=== PATIENT | female | born 1950 | race Caucasian/White ===

== ENCOUNTER → 2017-11-29 | Outpatient (CLI) | payer MEDICARE | LOC: M.RAD 12:15 | DX: Z12.31 Encounter for screening mammogram for malignant neoplasm of breast (principal) ==

== ENCOUNTER → 2018-12-27 | Outpatient (CLI) | payer MEDICARE | LOC: M.RAD 13:00 | DX: Z12.31 Encounter for screening mammogram for malignant neoplasm of breast (principal) ==

== ENCOUNTER → 2018-12-30 | Outpatient (CLI) | payer MEDICARE ==
--- NOTE | 2019-01-10 17:06 | PATH ---
[address] [address] PATHOLOGY RPT PROCEDURE Name: ADAM YADAV Room: [facility] A[facility] M Mckeon#: [id number] Admission: 12/30/18 Date of : 48 Discharge: Report #: [id number] Path Case #: [id number] [facility] Accession Number: [id number] . 01 Material submitted: . breast - RIGHT BREAST BIOPSY, 5:00, 4CFN. Modifiers: right, 5:00 . 01 Clinical history: . 1.85 x 1.89 x 1.26 cm . 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 See comment. (JULIANE:tiara; 01/02/2019) QTP/01/02/2019 . 02 Comment: Specimen type: Image guided core biopsies Tumor site: Right breast 5:00, 4 cm from nipple Tumor quantitation: Approximately 95% of submitted tissues Histologic type: Ductal adenocarcinoma with micropapillary features Histologic grade:I of III Tubules, nuclei and mitoses: 1, 2, 1 LVSI: Not identified Microcalcifications: Not identified Markers: Breast tumor profile pending Block: A1 . No ductal carcinoma in situ is seen. Breast tumor profile studies are pending on A1 and will be the subject of an addendum report. Reviewed with Dr. Joseph Miranda who agrees with the diagnosis. Yun (acting [facility] Breast Navigator) notified at approximately 1415 on 01/02/2019. (JULIANE:pit; 01/02/2019) . 02 Addendum: . Special studies report received from [facility], [address] [place] [address], [address], [place], [address], on case [id number], labeled with their number [id number], dated 01/06/2019. . Breast/Prognostic Marker Analysis . Specimen Site: Rt Breast,4 CMFN, Breast cancer. Specimen ID #: [id number] . ER (Estrogen Receptor) Present/Positive Percent: 80.00% [place] [address] PATHOLOGY RPT PROCEDURE Name: YADAVADAM JACK Room: [facility]#: [id number] Admission: 12/30/18 Date of : 48 Discharge: Report #: [id number] Path Case #: [id number] Analysis: Manual Comments: Staining Intensity: Strong . TN (Progesterone Receptor) Present/Positive Percent: 70.00% Analysis: Manual Comments: Staining Intensity: Strong . HER2 Equivocal Score: 2+ Analysis: Manual . Ki-67 Low Proliferation Percent: 10.00% Analysis: Manual . Time to Fixation (Cold Ischemic Time): Unknown Duration of Fixation: Greater 7 hours and less than 72 hours Type of Fixative: 10% Neutral Buffered Formalin . . at [facility]. Mekhi Arias MD Surgical Pathologist . . Methodology The HER2 Receptor protein expression is analyzed using the Belterra HER2 rabbit monoclonal antibody (clone 4B5). This assay is used for diagnostic determination of the HER2 protein over-expression in paraffin embedded, formalin fixed breast cancer tissue on the Belterra Benchmark. The specimen is processed using a polymer detection system. The membrane staining of the tumor is determined either by manual score or image analysis. This antibody is intended for in vitro diagnostic use. The score is reported as per package insert; 0, 1+, 2+, and 3+. This test is used for clinical purposes. . A rabbit monoclonal antibody (clone SP1) that recognized the Estrogen Receptor is used to perform immunohistochemistry on routinely fixed (formalin) paraffin embedded tissue on the Belterra Benchmark. The specimen is processed using a polymer detection system. The percentage of stained tumor nuclei is determined either manually or by image analysis. This test is intended for in vitro diagnostic use. This test is used for clinical [place] [address] PATHOLOGY RPT PROCEDURE Name: ADAM YADAV [facility] [id number] Admission: 12/30/18 Date of : 48 Discharge: Report #: [id number] Path Case #: [id number] A rabbit monoclonal antibody (clone 1E2) that recognized the Progesterone Receptor is used to perform immunohistochemistry on routinely fixed (formalin) paraffin embedded tissue on the Belterra Benchmark. The specimen is processed using a polymer detection system. The percentage of stained tumor nuclei is determined either manually or by image analysis. This test is intended for in vitro diagnostic use. This test is used for clinical purposes. . A rabbit monoclonal antibody (clone 30-9) that recognized Ki67 is used to perform immunohistochemistry on routinely fixed (formalin) paraffin embedded tissue on the Belterra Benchmark. The specimen is processed using a polymer detection system. The percentage of stained tumor nuclei is determined either manually or by image analysis. This test is intended for in vitro diagnostic use. This test is used for clinical purposes. . Intended Use: This antibody is intended for in vitro diagnostic (IVD) use. HER2 (4B5) is a rabbit monoclonal antibody intended for the semi-quantitative detection of HER2 antigen in sections of formalin-fixed, paraffin embedded normal and neoplastic tissue. . This antibody is intended for in vitro diagnostic (IVD) use. Estrogen Receptor (ER) (SP1) is a rabbit monoclonal antibody (IgG) that is intended for the qualitative detection of estrogen receptor (ER) antigen in sections of formalin-fixed, paraffin-embedded tissue. ER is a rabbit monoclonal antibody that recognizes human estrogen receptor alpha. . This antibody is intended for in vitro diagnostic (IVD) use. Progesterone Receptor (TN) (1E2) is a rabbit monoclonal antibody (IgG) that is intended for the qualitative detection of progesterone receptor (TN) antigen in sections of formalin fixed, paraffin embedded tissue. TN is a rabbit monoclonal antibody that recognizes the A and B forms of the human progesterone receptor. . This antibody is intended for in vitro diagnostic (IVD) use. Ki-67 (30-9) is a rabbit monoclonal antibody (IgG) directed against C-terminal portion of Ki-67 antigen. Staining for Ki-67 can be used to aid in assessing the proliferative activity of normal and neoplastic tissue. Ki-67 is a nuclear protein expressed in proliferating cells. During the cell cycle, the Ki-67 antigen is present in the G1, S, G2 and M phase but is absent in the G0 (quiescent phase). . . Disclaimer: This Test was performed by [facility] [place]. at [address], [address]. . [facility] is a business unit of [facility] [place]. a wholly-owned subsidiary of [place] [address] PATHOLOGY RPT PROCEDURE Name: ADAM YADAV Room: [facility].#: [id number] Admission: 12/30/18 Date of : 48 Discharge: Report #: [id number] Path Case #: [id number] Annamarie [facility]. . This assay has not been validated on decalcified tissues. Results should be interpreted with caution if this specimen was decalcified given the likelihood of false negativity on decalcified specimens. . Any image(s) that accompany this report is/are a fundraising sale representative image(s) only and should not be used to render a diagnosis. . This interpretation is contingent on the specimen and the clinical information received. . For any special tests/stains performed, known positive cells or tissues are tested with each marker and examined to ensure positivity. Positive and negative internal controls, if present, react appropriately. . This analysis is an adjunct to the evaluation of the referring physician and does not represent a final diagnosis. . The immunohistochemistry tests performed at [facility] [place] were validated on tissue fixed in 10% neutral buffered formalin. The performance characteristics of the tests performed on tissue processed in other fixatives is not known. . HER2 testing at [facility] is performed in compliance with the 2018 updated ASCO/CAP Clinical Practice Guideline Focused Update. If the result is EQUIVOCAL (2+), it must be confirmed by an alternative assay such as FISH or Dual JED. . REF: Shani SALINAS, TICO Butler et al: Human Epidermal Growth Factor Receptor 2 Testing in Breast Cancer: ASCO/CAP Clinical Practice Guideline Focused Update. J Clin Oncol 36:0666-3614, 2018. . HER2 and ER/TN ASCO/CAP guidelines require fixation in neutral buffered formalin for a minimum of 6 and a maximum of 72 hours. Fixation times less than 6 hours may not adequately preserve cell proteins. Fixation times longer than 72 hours may cause excess cross-linking of proteins reducing the antigen available for staining. Either scenario can cause reduced staining; hence false negative results are possible and should be considered for these situations if the HER2 IHC score is less than 3+ or ER or TN is negative (no staining or <1% positive). It is recommended that specimens fixed longer than 72 hours with HER2 IHC scores less than 3+ be confirmed by HER2 FISH or Dual JED. The time from biopsy/excision to fixation in formalin (cold ischemic time) must be less than 1 hour. Time to fixation (cold ischemic time) greater than 1 hour should be interpreted with caution. HER2 testing, mainly HER2 by FISH, is particularly vulnerable since excessive cold ischemic time results in preferential loss of HER2 probe signals that may lead to false [place] [address] PATHOLOGY RPT PROCEDURE Name: ADAM YADAV [id number] Admission: 12/30/18 Date of : 48 Discharge: Report #: [id number] Path Case #: [id number] SCORE STAINING PATTERN IN TUMOR CELLS INTERPRETATION RESULTS 0 No staining observed or incomplete, faint membrane staining in less than or equal to 10% of tumor cells. Negative 1+ Incomplete, faint membrane staining in greater than 10% of tumor cells. Negative 2+ Weak to moderate complete membrane staining observed in greater than 10% of tumor cells. Equivocal* *Must be confirmed by alternative assay (IHC/FISH/Dual JED) 3+ Intense, complete membrane staining in greater than 10% of tumor cells. Positive . A complete copy of the report is on file. . Professional and Technical services performed by [facility]. at [address] [place] [address], [address], [place] [address]. . (AMJ 01/06/2019) AZJ/01/06/2019 Addendum Electronically Signed by Jose A Baeza MD, Pathologist Addendum #2: Special studies report received from [facility], [address] [place] [address], [address], [place], [address], on case [id number], labeled with their number [id number], dated 01/10/2019. . Fluorescence in situ Hybridization (FISH) Report HER2/ALEXANDRA-17 Dual-Probe (Breast Cancer) . Result: Negative/Not Amplified HER2/ALEXANDRA-17 Ratio: 1.2 Avg number of HER2 Signals/Nucleus: 1.8 . Indication for Study: Breast Cancer . Specimen Site/Type: Right Breast Tissue - 5:00 . Fixative: 10% Neutral Buffered Formalin . Time to Fixation: Not Provided . Duration of Fixation: 7-72 hours . HER[place] [address] PATHOLOGY RPT PROCEDURE Name: ADAM YADAV Room: [facility]#: [id number] Admission: 12/30/18 Date of : 48 Discharge: Report #: [id number] Path Case #: [id number] Number of tumor cells counted: 20 Number of observers: 2 Avg number of HER2 Signals/Nucleus: 1.8 Avg number of ALEXANDRA-17 Signals/Nucleus: 1.8 Ratio of average HER2/ALEXANDRA-17: 1.0 . See report [id number] for further information. . . Reviewed and electronically signed by Mekhi Arias M.D. on 01/10/2019 at [facility] Mekhi Arias M.D. . . Methodology: A FDA approved DAKO HER2 IQFISH pharmDX (HER2/ALEXANDRA-17 DNA Probe Kit) was used for the assessment of HER2 gene amplification status. The FISH analysis was performed on areas of invasive tumor cells that were defined by a pathologist from a corresponding H and E slide. A minimum of twenty invasive tumor nuclei were analyzed by two technologists. For each nucleus, the number of HER2 signals and the number of centromere 17 (ALEXANDRA-17) signals were recorded. Enumeration results are reported as a ratio of the total HER2 hybridization signals to ALEXANDRA-17 hybridization signals. An average number of HER2 signals/nucleus and an average number of centromere 17 signals/nucleus were also recorded. If the HER2/ALEXANDRA-17 ratio is >/= 2, the HER2 gene status is Amplified/Positive. If the HER2/ALEXANDRA-17 ratio is <2, the HER2 gene status is Non-Amplified/Negative. If results are at or near the cut off (1.8-2.2), an additional 20 nuclei are counted and the ratio for 40 nuclei is recalculated. A HER2/ALEXANDRA-17 ratio of 1.8-2.2 should be interpreted with caution. The HER2 FISH results are reported using the 2018 ASCO/CAP guidelines. . ASCO/CAP 2018 SCORING CRITERIA GROUP 1 HER2/ALEXANDRA-17 ratio >/= 2.0 HER2 signals/cell >/= 4.0 FISH Positive . GROUP 2 HER2/ALEXANDRA-17 ratio >/= 2.0 HER2 signals/cell < 4.0 Additional work-up required (see comments) . GROUP 3 HER2/ALEXANDRA-17 ratio < 2.0 HER2 signals/cell >/= 6.0 Additional work-up required (see comments) . GROUP 4 [place] [address] PATHOLOGY RPT PROCEDURE Name: ADAM YADAV Room: [facility]#: [id number] Admission: 12/30/18 Date of : 48 Discharge: Report #: [id number] Path Case #: [id number] HER2/ALEXANDRA-17 ratio < 2.0 HER2 signals/cell >/= 4.0 AND < 6.0 Additional work-up required (see comments) . GROUP 5 HER2/ALEXANDRA-17 ratio < 2.0 HER2 signals/cell < 4.0 FISH Negative . Specimen handling: Tissue samples should be preserved in 10% neutral buffered formalin for 18-24 hours per FDA approved DAKO HER2 IQFISH pharmDX. Extended fixation time might increase the incubation time required for Pepsin digestion. ASCO/CAP guidelines requires fixation for a minimum of 6 and a maximum of 72 hours. The time from biopsy/excision to fixation in formalin (cold ischemic time) must be less than an hour. Time to fixation (cold ischemic time) greater than 1 hour should be interpreted with caution. HER2 testing, mainly HER2 by FISH, is particularly vulnerable since excessive cold ischemic time results in preferential loss of HER2 probe signals that may lead to false negative results. . Intended Use: HER2 IQFISH pharmDX is indicated as an aid in the assessment of breast cancer patients for whom Herceptin (Trastuzumab), PERJETATM (pertuzumab) or KADCYLATM (ado-trastuzumab emtansine) treatment is being considered. Results from HER2 IQFISH pharmDX are also used as an adjunct to the clinicopathologic information currently used for estimating prognosis in stage II, node-positive breast cancer patients. . Reference: Shani SALINAS, TICO Butler et al: Human Epidermal Growth Factor Receptor 2 Testing in Breast Cancer: ASCO/CAP Clinical Practice Guideline Focused Update. J Clin Oncol 36:0331-1143, 2018. . DAKO kit: Histology FISH Accessory kit code [id number] . Disclaimer This Test was performed by [facility] [place] at [address] [place] [address], [address]. [facility] is a business unit of [facility] [place] a wholly-owned subsidiary of [employer]. . This assay has not been validated on decalcified tissues. Results should be interpreted with caution if this specimen was decalcified given the likelihood of false negativity on decalcified specimens. Any image(s) that accompany this report is/are a fundraising sale representative image(s) only and should not be used to render a [place] [address] PATHOLOGY RPT PROCEDURE Name: ADAM YADAV Room: [facility]#: [id number] Admission: 12/30/18 Date of : 48 Discharge: Report #: [id number] Path Case #: [id number] A copy of the complete report is on file. . Professional services performed by [facility] at [address], [place] [address]. Technical services performed by [facility] at [address], [place] [address]. . (JULIANE:am 01/10/2019) . . AZJ/01/10/2019 Addendum Electronically Signed by Jose A Baeza MD, Pathologist . 02 Electronically signed: . Jose A Baeza MD, Pathologist NPI- [id number] . 01 Gross description: . Received in formalin labeled "Adam Yadav, right breast biopsy 5:00 4 cfn," are multiple needle cores of yellow-de los santos fibrofatty tissue measuring 1.5 x 0.5 x 0.2 cm in aggregate dimensions. The tissue is submitted in its entirety in cassettes A1 through A3. The cold ischemic time is unknown. The total formalin fixation time is greater than 7 hours and less than 72 hours. (TSD; 12/30/2018) TOB/TOB . 02 Pathologist provided ICD-10: C50.911 . 02 CPT . 302915 Specimen Comment: A courtesy copy of this report has been sent to Specimen Comment: [phone], . Specimen Comment: Report sent to / DR VITAL Performed at: [address], [place], [place] [id number] MD Danny El MD Phone: [phone] Performed at: [address] [place] [address] [address], [place], [place] [id number] MD Jose A Baeza MD Phone: [phone]
== END | disposition home or self-care (01) ==
LOC: M.ULTRA 08:00
DX: C50.911 Malignant neoplasm of unspecified site of right female breast (principal)

== ENCOUNTER → 2019-01-17 | Outpatient (CLI) | payer MEDICARE ==
[2019-01-17 10:47] LABS: CREATININE 1.1 mg/dL (0.6-1.3)
== END ==
LOC: M.LAB 10:27 → M.MRI 11:30
PROVIDERS: Surgery
DX: C50.311 Malignant neoplasm of lower-inner quadrant of right female breast (principal)

== ENCOUNTER → 2019-02-03 | Outpatient (CLI) | payer MEDICARE ==
[~2019-02-03] MED LIST: NORCO 5-325 TA1 EAC1 PO; PROZAC20 MG PO
--- NOTE | ~2019-02-03 | CON ---
[address] [address] CONSULTATION Name: ADAM YADAV Room: [facility].#: [id number] Admission: 02/03/19 Attend Phys: Mynor Talley MD Discharge: Date of : 48 Report #: [id number] THIS REPORT FOR: //name// CC: Mynor Cool DATE OF SERVICE: 02/03/2019 RADIATION ONCOLOGY CONSULT NOTE REFERRING PHYSICIANS: Include Dr. Mary Ellen Osborne, Dr. Robert Malin and Dr. Jey Cool. PRIMARY SITE AND HISTOPATHOLOGY: The patient has findings consistent with an estrogen receptor positive, low-grade infiltrating ductal carcinoma of the right breast. HISTORY OF PRESENT ILLNESS: The patient is a 68-year-old woman who was found to have a suspicious area on routine mammogram and so she underwent at the 5 o'clock position of the right breast on 12/27/2018. She underwent on to undergo a biopsy at the 5 o'clock position on 12/30/2018 and that revealed a low-grade infiltrating ductal carcinoma that was 80% estrogen receptor positive, 70% progesterone receptor positive, Ki-67 was 10% and HER2/debbie was equivocal with FISH being negative and so the patient went on to have an MRI of her breasts on 01/17/2019 which revealed a malignant-appearing mass measuring 1.6 x 1.3 x 1.6 cm at 5 the o'clock position of the right breast. The patient saw her surgeon, Dr. Osborne who offered her breast conservation therapy. She presents to discuss the role of radiation therapy as part of breast conservation therapy. PAST MEDICAL HISTORY AND PAST SURGICAL HISTORY: The patient has hypertension, Sjogren's syndrome and depression. She had appendectomy at the age of 15 at [facility]. MEDICATIONS: Fluoxetine. ALLERGIES: She has no known drug allergies. GYNECOLOGY HISTORY: 1, para 0, SAB 1. Menopause around the year 1999. SOCIAL HISTORY: She is retired. She is single. Cigarettes, she does not smoke. Ethanol, maybe 1 wine every 5-7 days. REVIEW OF SYSTEMS: GENERAL: She denied having any fevers or chills. SKIN: She denied having color changes. LYMPH NODES: She denied having enlarged or painful [place] [address] CONSULTATION Name: ADAM YADAV Room: [facility]#: [id number] Admission: 02/03/19 Attend Phys: Mynor Talley MD Discharge: Date of : 48 Report #: [id number] ENDOCRINE: She denied having any hot or cold intolerance. HEMATOLOGY/IMMUNOLOGY: She denied having any anemia. MUSCULOSKELETAL: She denied having any arthritis. HEAD AND NECK: She goes to seeing a dentist for some dental issues. RESPIRATORY: She had a cough, which she thinks is due to allergies. CARDIOVASCULAR: She denied having palpitations. GASTROINTESTINAL: She denied having nausea or vomiting. NEUROLOGIC: She denied having any focal weakness. PHYSICAL EXAMINATION: With my nurse, Mita Ovalles present: VITAL SIGNS: Height 5 feet 3 inches, weight 168.2 pounds, blood pressure 157/84, pulse 82, oxygen saturation 97%, respirations 18. LYMPH NODES: She had no palpable cervical, supraclavicular or axillary lymphadenopathy. PSYCHIATRIC: She is alert, oriented, in no acute distress. HEART: Had a regular rate and rhythm without murmur. LUNGS: Clear to auscultation. ABDOMEN: Nontender. Spleen was not palpable. Liver was at the costal margin. BREASTS: Left breast had no suspicious palpable masses. Right breast had no suspicious palpable masses. EXTREMITIES: She had no clubbing, cyanosis or edema. NEUROLOGIC: Cranial nerves 2-12 are intact. Sensation was intact. She had 5/5 strength throughout. ASSESSMENT AND PLAN: The patient's options include breast conservation therapy versus mastectomy. This is based on studies such as NSABP B-06, where patients are randomized to mastectomy versus lumpectomy versus lumpectomy and radiation therapy, 20-year followup, there was no difference in survival between those 3 groups. The addition of radiation therapy to lumpectomy reduced the local failure rate from 39% to 14%. The patient has decided to proceed with breast conservation therapy and she saw Dr. Osborne and scheduled for lumpectomy on 02/06/2019. So the risks, benefits, logistics of radiation therapy as part of breast conservation therapy were explained to the patient in detail. She gave her witnessed informed consent to proceed with radiation therapy and orders will be written to see the patient back in approximately 3-4 weeks. Thank you very for this consultation. By: [id number] Talley MD /leah
== END ==
LOC: M.RTH 04:52
DX: Z08 Encounter for follow-up examination after completed treatment for malignant neoplasm (principal); Z85.3 Personal history of malignant neoplasm of breast

== ENCOUNTER → 2019-02-06 | Day surgery (SDC) | payer MEDICARE ==
[~2019-02-06] VITALS: Ht 160 cm; Wt 75.7 kg
--- NOTE | ~2019-02-06 | OP ---
[address] [address] OPERATIVE REPORT Name: ADAM YADAVAN Room: [facility]#: [id number] Admission: 02/06/19 Attend Phys: Mary Ellen Osborne MD Discharge: Date of : 48 Report #: [id number] THIS REPORT FOR: //name// CC: Jey Osborne DATE OF SERVICE: 02/06/2019 PREOPERATIVE DIAGNOSIS: Malignant neoplasm, lower inner quadrant, right female breast. POSTOPERATIVE DIAGNOSES: Malignant neoplasm lower inner quadrant, right female breast; acquired deformity, right breast. PROCEDURE: 1. Injection of blue dye. 2. Right breast needle localized lumpectomy. 3. Right breast reconstruction using 2 x 3 BioZorb. 4. Right axillary sentinel lymph node biopsy. SURGEON: Mary Ellen Osborne MD ANIMAL MAINTENANCE SUPERVISOR: None. ANESTHESIA: General anesthesia. ESTIMATED BLOOD LOSS: 3 mL. SPECIMENS REMOVED: 1. Right breast mass. 2. Right breast new medial margin, stitch baca new margin. 3. Right breast new inferior margin, stitch baca new margin. 4. Right breast new lateral margin, stitch baca new margin. 5. Right breast new superior margin. 6. Right breast new posterior margin. 7. Right breast new anterior margin. 8. Right axillary sentinel lymph node #1, hot, blue, max count 64678. 9. Right axillary sentinel lymph node #2, hot, not blue, max count, 2168. 10. Right axillary sentinel lymph node #3, hot, not blue, max count, 1476. 11. Right axillary sentinel lymph node #4, hot, not blue, max count, 1547. COMPLICATIONS: None. FINDINGS: Clip and lesion in the mammographic specimen. Other Incision 5 cm in length, 12 cm from nipple 5 o'clock position, [place] [address] OPERATIVE REPORT Name: YADAVADAM BURTONAN Room: [facility]#: [id number] Admission: 02/06/19 Attend Phys: Mary Ellen Osborne MD Discharge: Date of : 48 Report #: [id number] INDICATIONS: The patient is a 68-year-old female with imaging on 12/27/2018 and 12/30/2018 showing a 1.9 cm irregular mass at the 5 o'clock, right breast, 4 cm from nipple. Normal appearing axillary lymph nodes. A biopsy on 12/30/2018 was grade 1 invasive ductal carcinoma, ER/TN positive, HER-2 negative, Ki-67 10%. MRI on 01/17/2019, confirmed the primary lesion only. Clinical, T1 N0 M0 stage IA breast cancer. The patient was interested in and a good candidate for breast conservation therapy. Due to the location and size, I did recommend utilization of BioZorb to fill in some tissue given position in the lower pole and she was interested in this. Risks and benefits for lumpectomy, sentinel node biopsy, and BioZorb placement were discussed with the patient and delineated in the H and P and she agreed to proceed. DESCRIPTION OF PROCEDURE: The patient was brought to the operating room after informed consent had been obtained, she was placed under general anesthesia in the supine position with the right arm extended. Preoperatively, she had been taken to ultrasound for wire localization of the mass followed by Nuclear Medicine for injection for the sentinel node portion of the case. A 5 mL of Lymphazurin blue was injected in the intradermal and subdermal location in the upper outer periareolar region of the right breast. The right breast and axilla were then prepped and draped in normal sterile manner. Prior to all skin incisions, a combination of 1% lidocaine plain and 0.5% Marcaine with epinephrine were used and inframammary skin incision was made with a knife. This was deepened into the subcutaneous tissues using the Bovie electrocautery. A path was created superiorly toward the wire exit site. Once the wire was identified, it was grasped with 2 hemostats and brought into the incision. The Bovie electrocautery was then used to continue dissection anteriorly in the superficial mastectomy plane anterior to the palpable postbiopsy change and mass and circumferentially. Once completely surrounded, it was removed, labeled for orientation purposes, placed in the mammographic specimen tray, and handed off for mammographic evaluation. Mammogram confirmed that the lesion and the clip as well as the wire were indeed within the specimen. The attention was then turned to the wound bed. It was copiously irrigated with normal saline and was noted to be adequately hemostatic. Attention was turned to the region of the medial margin. Bovie electrocautery was used to excise a thin rim of tissue to encompass the new medial margin. This was then repeated in the inferior lateral superior, posterior and anterior margins. All of these were labeled for orientation purposes and handed off for permanent specimen. The wound bed was again examined and noted to be adequately hemostatic. The BioZorb sizers were obtained and the decision was made to proceed with placement of a 2 x 3 BioZorb. The 4 stay sutures of 3-0 PDS were used in the 4 cavities on the lumpectomy bed. These were secured in place with hemostats. The 2 x 3 BioZorb was then opened onto the field. Changing into clean sterile gloves, I removed it from the box and placed in the lumpectomy bed, secured in all four quadrants of the incision using the previously placed stay sutures. The attention was then turned to closure. There was adequate tissue coverage over the BioZorb. I did mobilize some additional tissue flaps superiorly and [place] [address] OPERATIVE REPORT Name: ADAM YADAV Room: [facility]#: [id number] Admission: 02/06/19 Attend Phys: Mary Ellen Osborne MD Discharge: Date of : 48 Report #: [id number] fairly minimal dissection of flaps in order to facilitate additional closure. Once these were mobilized, the deeper tissues were closed in layers of interrupted 3-0 Vicryl overlying the BioZorb. The deep dermal layers were then closed with interrupted 3-0 Vicryl suture. Skin was then closed with 4-0 Monocryl in a subcuticular manner. Attention was then turned to the axilla. Hinckley probe was used to titi the area of highest activity in the axilla. An incision was made in this region with a knife. This was deepened into the subcutaneous tissues using the Bovie electrocautery. A Weitlaner retractor was placed. The fascia was divided and the axilla was explored using the Hinckley probe. An area of a blue lymphatics was noted. This did seem to correspond with an area picked up by the Hinckley probe. Dissection in this region revealed a moderate blue lymph node. This was isolated using a combination of Bovie electrocautery and Ligaclip dissection. Once completely removed, counts were obtained and this was sent for permanent specimen as sentinel node #1. Attention was redirected to the axilla and with the use of the Hinckley probe, additional areas of radiotracer uptake were noted. There did not seem to be any associated blue node, but there was a lymph node that was isolated with a combination of Ligaclip and Bovie electrocautery dissection. Once completely removed, counts were obtained and sent off as sentinel node #2. Adjacent to this in the same specimen was a second lymph node, they were clearly separate. These had been after I had removed the specimen and these actually went as sentinel node #2 and #3. There was finally still some additional activity noted in the axilla. There was an additional area of high counts noted. There was not anything blue in this region. There was some vague firmness noted consistent with a fatty lymph node. This was isolated with a combination of Ligaclip and Bovie electrocautery dissection. Once completely removed, it did indeed have radiotracer uptake and this was indeed the additional specimen. This was handed off for as sentinel node #4. Attention was redirected to the axilla one final time with removal of final lymph node, the background counts were in the mid double digits and there were no additional high counts noted. The axilla was copiously irrigated with normal saline. It was noted to be adequately hemostatic. The axillary fascia was reapproximated with a single interrupted suture of 3-0 Vicryl. The deep dermal layers were closed with interrupted 3-0 Vicryl sutures and skin was closed with 4-0 Monocryl in a subcuticular manner. The wound was dressed with Dermabond dressing. The patient tolerated the procedure well. Sponge, lap and needle counts were correct x 2 at the end of the procedure. Both wounds were dressed with Dermabond dressing. By: [id number] Osborne MD /leah
[2019-02-06 07:21] LABS: HEMATOCRIT 38.7 % (37.0-47.0); HEMOGLOBIN 13.6 gm/dL (12.0-15.0); MCH 32.7 pg (26.0-34.0); MCHC 35.1 g/dL (28.0-37.0); MCV 93.3 fL (80.0-100.0); RBC 4.15 mil/uL (4.20-5.00); RDW-CV 14.5 % (10.5-14.5); WBC 5.1 thou/uL (4.0-11.0)
[2019-02-06 07:30] LABS: CALCIUM 9.3 mg/dL (8.5-10.1); CREATININE 1.1 mg/dL (0.6-1.3); POTASSIUM 3.9 mmol/L (3.5-5.1)
[2019-02-06 07:34] LABS: ALBUMIN 3.6 g/dL (3.4-5.0); TOTAL BILIRUBIN 0.6 mg/dL (<0.1-1.0); TOTAL PROTEIN 10.9 g/dL (6.4-8.2)
--- NOTE | 2019-02-06 17:13 | EKG ---
[place] [address] ELECTROCARDIOGRAM REPORT Name: ADAM YADAV Room: [facility]#: [id number] Admission: 02/06/19 Attend Phys: Mary Ellen Osborne MD Discharge: Date of : 48 Report #: [id number] THIS REPORT FOR: //name// [facility] Test Date: 2019-02-06 Test Time: 07:22:08 Pat Name: ADAM YADAV Department: Room: Gender: F Financial Investment Manager: : 1950 Requested By: Mary Ellen Osborne Order Number: [id number] Reading MD: Chaz Holloway Measurements Intervals [place] Rate: 90 P: 43 WI: 188 QRS: 32 QRSD: 91 T: 38 QT: 362 QTc: 443 Interpretive Statements Sinus rhythm LVH by voltage No previous ECG available for comparison Electronically Signed On 02-06-2019 17:13:05 CDT by Chaz Holloway [email or web address] <ELECTRONICALLY SIGNED> By: Chaz Holloway MD, [facility] 02/06/19 1713 0722 0722 Chaz Holloway MD, FACC /EPI
--- NOTE | 2019-02-09 17:06 | PATH ---
[address] [address] PATHOLOGY RPT PROCEDURE Name: JESSICA YADAV Room: [facility].#: [id number] Admission: 02/06/19 Date of : 48 Discharge: Report #: [id number] Path Case #: [id number] [facility] Accession Number: [id number] . 01 Material submitted: . PART A: breast - RIGHT BREAST CANCER. Modifiers: right PART B: breast - RIGHT BREAST NEW MEDIAL MARGIN; STITCH VELA NEW MARGIN. Modifiers: right, medial PART C: breast - RIGHT BREAST NEW INFERIOR MARGIN; STITCH VELA NEW MARGIN. Modifiers: right, inferior PART D: breast - RIGHT BREAST NEW LATERAL MARGIN; STITCH VELA NEW MARGIN. Modifiers: right, lateral PART E: breast - RIGHT BREAST NEW SUPERIOR MARGIN; STITCH VELA NEW MARGIN. Modifiers: right, superior PART F: breast - RIGHT BREAST NEW POSTERIOR MARGIN; STITCH VELA NEW MARGIN. Modifiers: right, posterior PART G: breast - RIGHT BREAST NEW ANTERIOR MARGIN; STITCH VELA NEW MARGIN. Modifiers: right, anterior PART H: lymph node - RIGHT AXILLARY SENTINEL LYMPH NODE #1; HOT, [place], [place] [address]. Modifiers: right, axillary tail, 1 PART I: lymph node - RIGHT AXILLARY SENTINEL LYMPH NODE #2; HOT, NOT BLUE, MAX COUNT IS 2168. Modifiers: right, axillary tail, 2 PART J: lymph node - RIGHT AXILLARY SENTINEL LYMPH NODE #3; HOT, NOT BLUE, MAX COUNT IS 1476. Modifiers: right, axillary tail, 3 PART K: lymph node - RIGHT AXILLARY SENTINEL LYMPH NODE #4; HOT, NOT BLUE, MAX COUNT IS 1547. Modifiers: right, axillary tail, 4 . 01 Clinical history: . Right breast cancer A. Long stitch = lateral, short stitch = superior, double stitch = deep . 02 Diagnosis: A. Right breast cancer: - DUCTAL CARCINOMA WITH PROMINENT MICROPAPILLARY FEATURES, (MICROPAPILLARY CARCINOMA) LOW GRADE, SPANNING 23 MM, ADJACENT TO CHANGES OF PRIOR BIOPSY (INCLUDING METALLIC CLIP), ALL SURGICAL MARGINS FREE OF INVOLVEMENT AND CLOSEST (SUPERIOR), LOCATED 0.6 MM AWAY. - DUCTAL CARCINOMA IN SITU (DCIS), NUCLEAR GRADE II, WITH FOCAL NECROSIS, CRIBRIFORM TYPE, ASSOCIATED WITH CALCIFICATIONS, SPANNING 10 MM, WITH ALL SURGICAL MARGINS FREE OF INVOLVEMENT AND CLOSEST (SUPERIOR) LOCATED LESS THAN 0.1 MM AWAY. SEE COMMENT. . B. Right breast new medial margin: - Benign breast tissue with usual ductal epithelial hyperplasia, cystic apocrine change, luminal calcifications and prominent medial calcification of blood vessel, negative for atypia. . C. Right breast new inferior margin: - Benign breast tissue with luminal calcifications, [place] [address] PATHOLOGY RPT PROCEDURE Name: JESSICA YADAV Room: [facility] Linda#: [id number] Admission: 02/06/19 Date of : 48 Discharge: Report #: [id number] Path Case #: [id number] . D. Right breast new lateral margin: - FOCAL DCIS, NUCLEAR GRADE II, CRIBRIFORM TYPE, SPANNING 0.5 MM, WITH FINAL SURGICAL MARGIN FREE OF INVOLVEMENT AND LOCATED 0.9 MM AWAY. - Changes of prior biopsy including fat necrosis and chronic inflammation, negative for malignancy. See comment. . E. Right breast new superior margin: - Benign breast tissue with luminal calcifications, negative for atypia. . F. Right breast new posterior margin: - FOCAL DCIS, NUCLEAR GRADE II, CRIBRIFORM TYPE, SPANNING 5 MM, WITH FINAL SURGICAL MARGIN FREE OF INVOLVEMENT AND LOCATED 4 MM AWAY. - Chronic inflammation and luminal calcifications, negative for malignancy. See comment. . G. Right breast new anterior margin: - Benign breast tissue with usual ductal epithelial hyperplasia and changes of prior biopsy including focal fat necrosis and mild chronic inflammation, negative for atypia. . H. Right axillary sentinel lymph node #1, hot, blue (max count 86814): - One benign lymph node. See comment. . I. Right axillary sentinel lymph node #2, hot, not blue (max count 2168): - One benign lymph node. See comment. . J. Right axillary sentinel lymph node #3, hot, not blue (max count 1476): - One benign lymph node. See comment. . K. Right axillary sentinel lymph node #4, hot, not blue (max count 1547): - Two benign lymph nodes. See comment. (JULIANE:brain; 02/09/2019) QMS/02/09/2019 . 02 Comment: Surgical Pathology Cancer Case Summary . . INVASIVE CARCINOMA OF THE BREAST: . . Procedure ___ Other (specify): Wire localized lumpectomy . Specimen Laterality ___ Right . [address] [place] [address] PATHOLOGY RPT PROCEDURE Name: JESSICA YADAV Room: [facility].#: [id number] Admission: 02/06/19 Date of : 48 Discharge: Report #: [id number] Path Case #: [id number] + Tumor Site + ___ Not specified . Tumor Size ___ Greatest dimension of largest invasive focus >1 mm: 23 mm + Additional dimensions: 13 x 10 mm . Histologic Type ___ Invasive micropapillary carcinoma . Histologic Grade (Preston Histologic Score) . Glandular (Acinar)/Tubular Differentiation ___ Score 2 (10% to 75% of tumor area forming glandular/tubular structures) . Nuclear Pleomorphism ___ Score 2 (cells larger than normal with open vesicular nuclei, visible nucleoli, and moderate variability in both size and shape) . Mitotic Rate ___ Score 1 (</= 3 mitoses per mm2) . Overall Grade ___ Grade 1 (scores of 3, 4, or 5) . + Tumor Focality + ___ Single focus of invasive carcinoma . Ductal Carcinoma In Situ (DCIS) ___ Present + ___ Positive for extensive intraductal component (EIC) . + Size (Extent) of DCIS + Estimated size (extent) of DCIS is at least (millimeters): At least 30 mm + Number of blocks with DCIS: 13 + Number of blocks examined: 48 (including specimens A through G) . + Architectural Patterns + ___ Cribriform . + Nuclear Grade + ___ Grade II (intermediate) + Necrosis + ___ Present, focal (small foci or single cell necrosis) . + Lobular Carcinoma In Situ (LCIS) + ___ No LCIS in specimen [address] [address] PATHOLOGY RPT PROCEDURE Name: YADAVJESSICA JACK Room: [facility].#: [id number] Admission: 02/06/19 Date of : 48 Discharge: Report #: [id number] Path Case #: [id number] . Margins . Invasive Carcinoma Margins ___ Uninvolved by invasive carcinoma Distance from closest margin: 16 mm (specimen A plus specimen E) Specify closest margin (required only if <10mm): Superior . DCIS Margins ___ Uninvolved by DCIS Distance from closest margin: 0.9 mm Specify closest margin (required only if <10mm): Lateral . Regional Lymph Nodes ___ Uninvolved by tumor cells Number of Lymph Nodes Examined: 5 Number of [place] Nodes Examined: 5 . Treatment Effect + ___ No known presurgical therapy . + Lymphovascular Invasion + ___ Not identified . + Dermal Lymphovascular Invasion + ___ No skin present . PATHOLOGIC STAGE CLASSIFICATION (PTNM, AJCC 8TH EDITION) . Primary Tumor (pT) ___ pT2:Tumor >20 mm but =50 mm in greatest dimension . Regional Lymph Nodes . Modifier ___ (sn): [place] node(s) evaluated. If 6 or more nodes (sentinel or nonsentinel) are removed, this modifier should not be used. Category (pN) ___ pN0: No regional lymph node metastasis identified or ITCs only# . + Additional Pathologic Findings + Specify: Localizing wire and prior biopsy clip identified . + Ancillary Studies (Previously Performed: [id number]) . + ER 80%, TX 70%, HER2 2+ - FISH not amplified/negative, Ki-67 10% . + Microcalcifications + ___ [place] [address] PATHOLOGY RPT PROCEDURE Name: JESSICA YADAV Room: [facility].#: [id number] Admission: 02/06/19 Date of : 48 Discharge: Report #: [id number] Path Case #: [id number] + ___ Present in invasive carcinoma + ___ Present in non-neoplastic tissue . + Clinical History: + ___ Other (specify): Previous image guided right breast 5:00 4 cm from nipple image guided core biopsy showing infiltrating ductal adenocarcinoma, low grade with micropapillary features, spanning 10 mm. ([id number]) . Properly controlled keratin AE1/AE3 stains performed on H1, I1, J1, K1, and K2 reveals no evidence of metastatic tumor. Approximately 90% of the infiltrating tumor shows micropapillary features. The closest approximation of the invasive tumor to a margin in the lumpectomy (A) is seen in A9, however, the synoptic data of the final closest margin is 16 mm based on this distance plus the thickness of the additional superior marginal tissue (E). The total span of DCIS is based on its identification in slides A4, A5, A7 through A15 and focally in D3 and F3. . (JULIANE:brain; 02/09/2019) . . 02 Electronically signed: . Jose A Baeza MD, Pathologist NPI- [id number] . 01 Gross description: . A. The specimen is received in formalin, labeled "Jessica Yadav, right breast cancer ". Received is a 14 g lumpectomy specimen oriented with a short suture designating the superior margin, a long suture designating the lateral margin, and a double suture designating the deep margin. The specimen measures 5.7 cm from medial to lateral, 3.4 cm from superficial/anterior to deep/posterior, and 1.6 cm from superior to inferior. There is a localization wire present which enters through the medial aspect and exits through the middle of the superior margin. The specimen is inked as follows: Superior-blue, inferior-green, lateral-red, medial-yellow, superficial/anterior-black, deep/posterior-orange. Sectioning reveals a linear previous biopsy cavity, with a metallic clip present near the medial aspect, measuring 2.1 x 0.3 x 0.3 cm. This site is 1.5 cm from the lateral margin, 2.7 cm from the medial margin, grossly approaches the superior margin, is 0.8 cm from the inferior margin, 1.2 cm from the superficial/anterior margin, and 0.8 cm from the deep/posterior margin. The previous biopsy site is surrounded by a well-circumscribed pink-trent mass measuring 2.3 x 1.3 x 1.0 cm. This mass is 1.4 cm from the lateral margin, 2.5 cm from the medial margin, grossly approaches the superior margin, is 0.3 cm from the inferior margin, 0.8 cm from the superficial/anterior margin, and 0.5 cm from the deep/posterior margin. The remainder of the specimen is comprised of bright yellow fibrofatty breast parenchyma. The specimen is submitted entirely from lateral to medial aspects in cassettes A1 through A21, [place] [address] PATHOLOGY RPT PROCEDURE Name: JESSICA YADAV Room: [facility]#: [id number] Admission: 02/06/19 Date of : 48 Discharge: Report #: [id number] Path Case #: [id number] and entire mass submitted in cassettes A5 through A12. The closest margin for the previous biopsy site and mass are submitted in cassette A11. The cold ischemic time is 22 minutes. The total formalin fixation time is 34 hours and 38 minutes. . B. The specimen is received in formalin, labeled "Jessica Yadav, right breast new medial margin, stitch vela new margin". Received is a 1 g segment of bright yellow lobulated tissue measuring 2.3 x 1.8 x 0.5 cm in greatest dimensions. The new margin is inked yellow. Sectioning reveals yellow-trent, lobulated cut surfaces throughout with no grossly distinct nodules or lesions. The specimen is submitted entirely in cassettes B1 through B4. The cold ischemic time is less than 1 minute. The total formalin fixation time is 34 hours and 53 minutes. . C. The specimen is received in formalin, labeled "Jessica Yadav, right breast new inferior margin, stitch vela new margin". Received is a 1 g segment of bright yellow lobulated tissue measuring 2.6 x 1.7 x 0.6 cm in greatest dimensions. The new margin is inked green. Sectioning reveals yellow-trent, lobulated cut surfaces with no grossly distinct nodules or lesions. The specimen is submitted entirely in cassettes C1 through C4. The cold ischemic time is less than 1 minute. Total formalin fixation time is 34 hours and 51 minutes. . D. The specimen is received in formalin, labeled "Jessica Yadav, right breast new lateral margin, stitch vela new margin". Received is a 2 g segment of bright yellow lobulated tissue measuring 2.9 x 1.3 x 0.9 cm in greatest dimensions. The new margin is inked red. Sectioning reveals yellow-trent, lobulated cut surfaces throughout with no grossly distinct nodules or lesions. The specimen is submitted entirely in cassettes D1 through D4. The cold ischemic time is less than 1 minute. The total formalin fixation time is 34 hours and 49 minutes. . E. The specimen is received in formalin, labeled "Jessica Yadav, right breast new superior margin, stitch vela new margin". Received is a 3 g segment of bright yellow lobulated tissue measuring 3.2 x 2.5 x 1.0 cm in greatest dimensions. The new margin is inked blue. Sectioning reveals yellow-trent, lobulated cut surfaces throughout with no grossly distinct nodules or lesions. The specimen is submitted entirely in cassettes E1 through E5. The cold ischemic time is less than 1 minute. The total formalin fixation time is 34 hours and 47 minutes. . F. The specimen is received in formalin, labeled "Jessica Yadav, right breast new posterior margin, stitch vela new margin". Received is a 2 g segment of bright yellow lobulated tissue measuring 3.3 x 1.2 x 0.8 cm in greatest dimensions. The new margin is inked orange. Sectioning reveals yellow-trent cut surfaces displaying a pale trent nodule measuring 0.5 cm in maximum dimensions which grossly abuts the new margin. The specimen is submitted entirely in cassettes F1 through F5, with the nodule submitted in cassette F4. The cold ischemic time is less than 1 minute. The total [facility] [address] [place] [address] PATHOLOGY RPT PROCEDURE Name: ESME YADAVJOLIE SANTIAGO Room: [facility] Tremaine.Fabien.#: [id number] Admission: 02/06/19 Date of : 48 Discharge: Report #: [id number] Path Case #: [id number] formalin fixation time is 34 hours and 45 minutes. . G. The specimen is received in formalin, labeled "Jessica Yadav, right breast new anterior margin, stitch vela new margin". Received is a 3 g segment of bright yellow lobulated tissue measuring 2.9 x 2.4 x 1.2 cm in greatest dimensions. The new margin is inked black. Sectioning reveals yellow-trent, lobulated cut surfaces throughout with no grossly distinct nodules or lesions. The specimen is submitted entirely in cassettes G1 through G5. The cold ischemic time is less than 1 minute. The total formalin fixation time is 34 hours and 42 minutes. . H. The specimen is received in formalin, labeled "Jessica Yadav, right axillary sentinel node #1, hot, blue, max count 24049". Received is a segment of yellow-trent lobulated tissue measuring 2.0 x 1.6 x 0.9 cm in greatest dimensions. Sectioning reveals a lymph node measuring 0.9 cm in maximum dimensions. The lymph node is bisected and entirely submitted in cassette H1. Immunohistochemical stains are ordered. . I. The specimen is received in formalin, labeled "Jessica Yadav, right axillary sentinel lymph node #2, hot, not blue, max count 2168". Received is a segment of yellow-trent lobulated tissue measuring 1.8 x 1.5 x 0.5 cm in greatest dimensions. Sectioning reveals a single lymph node measuring 0.6 cm in maximum dimensions. The specimen is bisected and entirely submitted in cassette I1. Immunohistochemical stains are ordered. . J. The specimen is received in formalin, labeled "Jessica Yadav, right axillary sentinel lymph node #3, hot, not blue, max count 1476". Received is a segment of yellow-trent lobulated tissue measuring 1.8 x 1.2 x 0.6 cm in greatest dimensions. Sectioning reveals a single lymph node measuring 0.5 cm in maximum dimensions. The specimen is bisected and entirely submitted in cassette J1. Immunohistochemical stains are ordered. . K. The specimen is received in formalin, labeled "Jessica Yadav, right axillary sentinel lymph node #4, hot, not blue, max count 1547". Received is a segment of yellow-trent lobulated tissue measuring 5.1 x 2.0 x 1.1 cm in greatest dimensions. Sectioning reveals two lymph nodes measuring 0.4 and 0.9 cm in maximum dimensions. The smaller lymph node is submitted intact in cassette K1. Larger lymph node is bisected and entirely submitted in cassette K2. Immunohistochemical stains are ordered. (CAA; 02/07/2019) QAC/QAC . 02 Pathologist provided ICD-10: C50.911, D05.12, N62, N64.89, N61.0, N64.1 . 02 CPT . 494162, 178901, 327947, 995831, 055213, 569793, 782019, 289543, 800883, 918694, 043162 Specimen Comment: A courtesy [place] [address] PATHOLOGY RPT PROCEDURE Name: JESSICA YADAV Room: [facility] M.Ramirez#: [id number] Admission: 02/06/19 Date of : 48 Discharge: Report #: [id number] Path Case #: [id number] Specimen Comment: [phone], . Specimen Comment: Report sent to / DR VITAL Performed at: [address], [place], [place] [id number] MD Danny El MD Phone: [phone] Performed at: [address] [address] [address], [place], [place] [id number] MD Jose A Baeza MD Phone: [phone]
== END | disposition home or self-care (01) ==
LOC: M.RAD 01-24 13:00 → M.SUR 06:57 → M.RAD 08:00 → EDSTATUS 08:00
PROVIDERS: Surgery
DX: C50.311 Malignant neoplasm of lower-inner quadrant of right female breast (principal); N62 Hypertrophy of breast; N64.89 Other specified disorders of breast; N61.0 Mastitis without abscess; N64.1 Fat necrosis of breast; D36.0 Benign neoplasm of lymph nodes; Z90.49 Acquired absence of other specified parts of digestive tract; Z98.890 Other specified postprocedural states; Z79.899 Other long term (current) drug therapy

== ENCOUNTER → 2019-06-26 | Outpatient (CLI) | payer MEDICARE ==
[2019-06-26 13:36] LABS: CALCIUM 9.6 mg/dL (8.5-10.1); POTASSIUM 3.5 mmol/L (3.5-5.1)
== END ==
LOC: M.LAB 06-23 12:30 → M.CT 06-23 13:00 → M.LAB 13:00
PROVIDERS: Internal Medicine Hematology & Oncology
DX: C50.311 Malignant neoplasm of lower-inner quadrant of right female breast (principal); J18.9 Pneumonia, unspecified organism; R51 Headache

== ENCOUNTER → 2020-01-01 | Outpatient (CLI) | payer MEDICARE | LOC: M.RAD 11:00 | PROVIDERS: ATTEND Radiology Radiation Oncology | DX: Z12.31 Encounter for screening mammogram for malignant neoplasm of breast (principal) ==

== ENCOUNTER → 2020-04-04 | Outpatient (CLI) | payer MEDICARE | LOC: M.ULTRA 14:30 | PROVIDERS: ATTEND Family Medicine | DX: M79.89 Other specified soft tissue disorders (principal); M79.661 Pain in right lower leg ==

== ENCOUNTER → 2020-04-12 | Outpatient (CLI) | payer MEDICARE | LOC: M.MRI 16:13 | PROVIDERS: ATTEND Family Medicine | DX: M51.27 Other intervertebral disc displacement, lumbosacral region (principal); M47.817 Spondylosis without myelopathy or radiculopathy, lumbosacral region; M48.07 Spinal stenosis, lumbosacral region ==

== ENCOUNTER → 2020-09-03 | Outpatient (CLI) | payer MEDICARE | LOC: M.ULTRA 16:00 | PROVIDERS: ATTEND Internal Medicine Hematology & Oncology | DX: M79.89 Other specified soft tissue disorders (principal); C50.311 Malignant neoplasm of lower-inner quadrant of right female breast; Z17.0 Estrogen receptor positive status [ER+] ==